=== PATIENT | female | born 1980 ===

== ENCOUNTER 2023-12-12 15:03 | Inpatient (IN) | payer OTHER ==
[2023-12-12 15:54] VITALS: BMI 12.1
[2023-12-12 16:23] LABS: BASO % 0.2 % (0-2.0); HEMATOCRIT 42.5 % (32.4-45.2); HEMOGLOBIN 14.5 GM/dL (10.7-15.3); LYMPH % 6.3 % (8-40); MCH 31.7 pg (25.7-33.7); MCHC 34.1 g/dl (32.0-36.0); MEAN CELL VOLUME 92.9 fl (80-96); MEAN PLT VOLUME 7.7 fl (7.5-11.1); MONO % 6.4 % (3.8-10.2); NEUT % 87.1 % (42.8-82.8); PLATELET COUNT 274 10^3/uL (134-434); RBC 4.58 M/mm3 (3.60-5.2); RDW 14.1 % (11.6-15.6); WHITE BLOOD COUNT 7.9 K/mm3 (4.0-10.0)
[2023-12-12 16:51] LABS: POTASSIUM 3.2 mmol/L (3.5-5.1)
[2023-12-12 16:53] LABS: BLOOD UREA NITROGEN 8.8 mg/dL (7-18)
[2023-12-12 16:54] LABS: ALBUMIN 3.5 g/dl (3.4-5.0)
[2023-12-12 16:57] LABS: CREATININE 0.4 mg/dL (0.55-1.3)
[2023-12-12 16:58] LABS: BILIRUBIN,TOTAL 0.2 mg/dL (0.2-1); TOT PROT 7.5 g/dl (6.4-8.2)
[2023-12-12] MEDS: SODIUM CHLORIDE 1,000 ML IV STA (18:23)
[2023-12-12 19:25] LABS: CHLORIDE 112 mmol/L (98-107); SODIUM 145 mmol/L (136-145)
[2023-12-12 19:27] LABS: BLOOD UREA NITROGEN 8.7 mg/dL (7-18); CALCIUM 7.9 mg/dL (8.5-10.1); CO2 29 mmol/L (21-32); GLUCOSE,RANDOM 109 mg/dL (74-106)
[2023-12-12 19:31] LABS: CREATININE 0.4 mg/dL (0.55-1.3)
[2023-12-12 19:44] LABS: ANION GAP 5 mmol/L (4-13); POTASSIUM 2.8 mmol/L (3.5-5.1)
[2023-12-12] MEDS ORDERED: KCL 10 MEQ IVPB 10 MEQ/100 ML INFUS.BAG IVPB ONE (20:37)
[2023-12-12] MEDS: KCL 10 MEQ IVPB 10 MEQ/100 ML INFUS.BAG IVPB SCH (20:55)
[2023-12-12] MEDS ORDERED: ACETAMINOPHEN 1000 MG/100 ML BAG IVPB PRN ×2 (21:44→22:14)
[2023-12-12] MEDS: SODIUM CHLORIDE 0.9% 500 ML INFUS.BAG IV ONE (22:26)
[2023-12-12] MEDS: DEXTROSE 5%-NORMAL SALINE 1,000 ML IV SCH (22:35)
[2023-12-12] MEDS ORDERED: PHENobarbital SODIUM 65 MG/1 ML VIAL ONE (23:47)
[2023-12-13] MEDS: PHENobarbital SODIUM 65 MG/1 ML VIAL IVPB ONE (00:06)
[2023-12-13 01:54] LABS: EPI CELLS >36 /uL (0-25.1); HYALINE CASTS 2 /uL (0-3.1); PH,URINE 6.5 (5.0-8.0); URINE APPEARANCE CLOUDY; URINE BACTERIA >9,000 /uL (0-1359); URINE BILIRUBIN NEGATIVE (NEGATIVE); URINE COLOR YELLOW; URINE GLUCOSE (UA) NEGATIVE (NEGATIVE); URINE KETONE 1+ (NEGATIVE); URINE LEUK ESTERASE NEGATIVE (NEGATIVE); URINE NITRITE POSITIVE (NEGATIVE); URINE PROTEIN TRACE (NEGATIVE); URINE UROBILINOGEN 0.2 mg/dL (0.2-1.0)
[2023-12-13] MEDS ORDERED: ACETAMINOPHEN 1000 MG/100 ML BAG IVPB PRN ×2 (03:03→03:04)
[2023-12-13] MEDS: SODIUM CHLORIDE 1,000 ML with POTASSIUM CHLORIDE 40 MEQ IV SCH (04:16)
[2023-12-13 05:08] LABS: URINE RBC 264.9 /uL (0-23.9); YEAST PRESENT (NEGATIVE)
[2023-12-13 08:36] LABS: BASO % 0.5 % (0-2.0); EOS % 0.5 % (0-4.5); HEMATOCRIT 35.4 % (32.4-45.2); HEMOGLOBIN 11.8 GM/dL (10.7-15.3); LYMPH % 8.3 % (8-40); MCH 31.4 pg (25.7-33.7); MCHC 33.3 g/dl (32.0-36.0); MEAN CELL VOLUME 94.4 fl (80-96); MONO % 8.3 % (3.8-10.2); NEUT % 82.4 % (42.8-82.8); PLATELET COUNT 214 10^3/uL (134-434); RBC 3.75 M/mm3 (3.60-5.2); RDW 14.1 % (11.6-15.6); WHITE BLOOD COUNT 8.1 K/mm3 (4.0-10.0)
[2023-12-13 08:42] LABS: INR 1.15 (0.83-1.09); PROTHROMBIN TIME (PATIENT) 13.3 SEC (9.7-13.0)
[2023-12-13 08:45] LABS: ACTIVATED PTT 24.4 SECONDS (25.2-36.5)
[2023-12-13 08:48] LABS: POTASSIUM 3.5 mmol/L (3.5-5.1)
[2023-12-13 09:31] LABS: BLOOD UREA NITROGEN 6.8 mg/dL (7-18); CALCIUM 8.2 mg/dL (8.5-10.1); MAGNESIUM 2.3 mg/dL (1.8-2.4)
[2023-12-13 09:34] LABS: CREATININE 0.2 mg/dL (0.55-1.3); PHOSPHOROUS 2.9 mg/dL (2.5-4.9)
[2023-12-13 09:36] LABS: BILIRUBIN,TOTAL 0.4 mg/dL (0.2-1); TOT PROT 5.8 g/dl (6.4-8.2)
[2023-12-13] MEDS: THIAMINE HCL 200 MG/2 ML VIAL IVPB SCH (09:41)
[2023-12-13 09:42] LABS: ALBUMIN 2.8 g/dl (3.4-5.0)
[2023-12-13] MEDS ORDERED: ENOXAPARIN NA (PORCINE) 40 MG/0.4 ML DISP.SYRIN SQ SCH (10:00)
[2023-12-13] MEDS: POTASSIUM CHLORIDE 40 MEQ in SODIUM CHLORIDE 1,000 ML IV SCH (17:50)
[2023-12-13] MEDS: PHENobarbital SODIUM 65 MG/1 ML VIAL IVPB SCH (20:36)
[2023-12-14 07:46] LABS: BASO % 0.6 % (0-2.0); EOS % 1.2 % (0-4.5); HEMATOCRIT 37.6 % (32.4-45.2); HEMOGLOBIN 12.7 GM/dL (10.7-15.3); LYMPH % 16.4 % (8-40); MCHC 33.7 g/dl (32.0-36.0); MEAN PLT VOLUME 8.3 fl (7.5-11.1); MONO % 5.6 % (3.8-10.2); NEUT % 76.2 % (42.8-82.8); PLATELET COUNT 199 10^3/uL (134-434); RBC 3.96 M/mm3 (3.60-5.2); WHITE BLOOD COUNT 6.7 K/mm3 (4.0-10.0)
[2023-12-14 07:54] LABS: CHLORIDE 116 mmol/L (98-107); POTASSIUM 4.9 mmol/L (3.5-5.1); SODIUM 144 mmol/L (136-145)
[2023-12-14 07:58] LABS: BLOOD UREA NITROGEN 12.1 mg/dL (7-18); CALCIUM 8.5 mg/dL (8.5-10.1)
[2023-12-14 07:59] LABS: ANION GAP 7 mmol/L (4-13); CO2 21 mmol/L (21-32)
[2023-12-14 08:02] LABS: CREATININE 0.3 mg/dL (0.55-1.3)
[2023-12-14 08:08] LABS: GLUCOSE,RANDOM 39 mg/dL (74-106)
[2023-12-14] MEDS ORDERED: DEXTROSE 50%-WATER 25 GM/50 ML DISP.SYRIN ONE (08:35)
[2023-12-14] MEDS: DEXTROSE 5%-LACTATED RINGERS 1,000 ML IV SCH (09:09)
[2023-12-14] MEDS: DEXTROSE 50%-WATER - 25 GM/50 ML VIAL IVPUSH ONE (09:20)
[2023-12-14] MEDS: CEFTRIAXONE 1 GM in DEXTROSE 5%-WATER - 50 ML IVPB SCH (17:13)
[2023-12-15 08:39] LABS: HEMATOCRIT 31.5 % (32.4-45.2); MCH 31.7 pg (25.7-33.7); MCHC 31.8 g/dl (32.0-36.0); MEAN CELL VOLUME 99.6 fl (80-96); MEAN PLT VOLUME 8.4 fl (7.5-11.1); PLATELET COUNT 161 10^3/uL (134-434); RBC 3.16 M/mm3 (3.60-5.2); RDW 14.5 % (11.6-15.6); WHITE BLOOD COUNT 4.9 K/mm3 (4.0-10.0)
[2023-12-15 12:25] LABS: CHLORIDE 105 mmol/L (98-107); SODIUM 141 mmol/L (136-145)
[2023-12-15 12:27] LABS: CALCIUM 8.1 mg/dL (8.5-10.1); CO2 30 mmol/L (21-32); GLUCOSE,RANDOM 109 mg/dL (74-106); MAGNESIUM 1.8 mg/dL (1.8-2.4)
[2023-12-15 12:30] LABS: CREATININE 0.3 mg/dL (0.55-1.3); PHOSPHOROUS 2.6 mg/dL (2.5-4.9)
[2023-12-15 12:32] LABS: ANION GAP 6 mmol/L (4-13); BLOOD UREA NITROGEN 2.3 mg/dL (7-18); POTASSIUM 2.8 mmol/L (3.5-5.1)
[2023-12-15] MEDS: KCL 10 MEQ IVPB 10 MEQ/100 ML INFUS.BAG IVPB SCH ×2 (13:57→15:59)
[2023-12-15] MEDS: POTASSIUM CHLORIDE ORAL LIQUID 20 MEQ/15 ML NGT ONE (15:59)
[2023-12-15] MEDS: AMINO ACIDS 4.25%/D5W 1,000 ML IV SCH (18:10)
[2023-12-15 20:45] LABS: POTASSIUM 3.4 mmol/L (3.5-5.1)
[2023-12-15 20:47] LABS: CALCIUM 8.1 mg/dL (8.5-10.1)
[2023-12-15 20:48] LABS: BLOOD UREA NITROGEN 3.4 mg/dL (7-18)
[2023-12-15 20:51] LABS: CREATININE 0.3 mg/dL (0.55-1.3)
[2023-12-16] MEDS: POTASSIUM CHLORIDE ORAL LIQUID 20 MEQ/15 ML NGT ONE (01:47)
[2023-12-16 07:59] LABS: HEMATOCRIT 38.2 % (32.4-45.2); MCH 31.5 pg (25.7-33.7); MCHC 34.1 g/dl (32.0-36.0); MEAN CELL VOLUME 92.6 fl (80-96); MEAN PLT VOLUME 8.3 fl (7.5-11.1); PLATELET COUNT 248 10^3/uL (134-434); RBC 4.13 M/mm3 (3.60-5.2); RDW 13.3 % (11.6-15.6); WHITE BLOOD COUNT 6.7 K/mm3 (4.0-10.0)
[2023-12-16 08:18] LABS: CHLORIDE 100 mmol/L (98-107); SODIUM 139 mmol/L (136-145)
[2023-12-16 08:28] LABS: CALCIUM 8.1 mg/dL (8.5-10.1)
[2023-12-16 08:29] LABS: BLOOD UREA NITROGEN 8.6 mg/dL (7-18); CO2 30 mmol/L (21-32); GLUCOSE,RANDOM 123 mg/dL (74-106); MAGNESIUM 1.8 mg/dL (1.8-2.4)
[2023-12-16 08:32] LABS: CREATININE 0.2 mg/dL (0.55-1.3)
[2023-12-16 08:45] LABS: ANION GAP 9 mmol/L (4-13); POTASSIUM 2.1 mmol/L (3.5-5.1)
[2023-12-16] MEDS: KCL 10 MEQ IVPB 10 MEQ/100 ML INFUS.BAG IVPB SCH ×2 (10:00→13:34)
[2023-12-16] MEDS: METOCLOPRAMIDE HCL INJECTION 10 MG/2 ML VIAL IVPUSH ONE (13:33)
[2023-12-16] MEDS: POTASSIUM PHOSPHATE 30 MM in SODIUM CHLORIDE 500 ML IVPB ONE (17:28)
[2023-12-17 00:59] LABS: POTASSIUM 3.1 mmol/L (3.5-5.1)
[2023-12-17 01:03] LABS: BLOOD UREA NITROGEN 10.5 mg/dL (7-18)
[2023-12-17 01:05] LABS: CREATININE 0.2 mg/dL (0.55-1.3)
[2023-12-17 01:07] LABS: BILIRUBIN,TOTAL 0.3 mg/dL (0.2-1); TOT PROT 6.5 g/dl (6.4-8.2)
[2023-12-17 01:14] LABS: CALCIUM 7.7 mg/dL (8.5-10.1)
[2023-12-17 02:22] LABS: MAGNESIUM 1.7 mg/dL (1.8-2.4)
[2023-12-17 02:25] LABS: PHOSPHOROUS 4.7 mg/dL (2.5-4.9)
[2023-12-17] MEDS: KCL 10 MEQ IVPB 10 MEQ/100 ML INFUS.BAG IVPB SCH (02:33)
[2023-12-17 06:33] LABS: BASO % 0.6 % (0-2.0); EOS % 0.1 % (0-4.5); HEMATOCRIT 39.2 % (32.4-45.2); HEMOGLOBIN 13.2 GM/dL (10.7-15.3); LYMPH % 6.4 % (8-40); MCH 31.3 pg (25.7-33.7); MCHC 33.8 g/dl (32.0-36.0); MEAN CELL VOLUME 92.6 fl (80-96); MEAN PLT VOLUME 7.9 fl (7.5-11.1); MONO % 6.4 % (3.8-10.2); NEUT % 86.5 % (42.8-82.8); PLATELET COUNT 269 10^3/uL (134-434); RBC 4.23 M/mm3 (3.60-5.2); WHITE BLOOD COUNT 9.2 K/mm3 (4.0-10.0)
[2023-12-17 12:14] LABS: CHLORIDE 102 mmol/L (98-107); SODIUM 140 mmol/L (136-145)
[2023-12-17 12:17] LABS: BLOOD UREA NITROGEN 10.7 mg/dL (7-18); CALCIUM 8.4 mg/dL (8.5-10.1); CO2 29 mmol/L (21-32); GLUCOSE,RANDOM 156 mg/dL (74-106); MAGNESIUM 1.9 mg/dL (1.8-2.4)
[2023-12-17] MEDS ORDERED: IOHEXOL (OMNIPAQUE PO) 12 MG/ML - 500 ML BOTTLE PO ONE (12:18)
[2023-12-17 12:21] LABS: ANION GAP 9 mmol/L (4-13); CREATININE 0.2 mg/dL (0.55-1.3); PHOSPHOROUS 2.1 mg/dL (2.5-4.9); POTASSIUM 2.9 mmol/L (3.5-5.1)
[2023-12-17 13:57] LABS: CHOLESTEROL 178 mg/dL (50-200)
[2023-12-17 14:00] LABS: LDL CHOLESTEROL (ONLY SJRH) 76 mg/dL (5-100)
[2023-12-17 14:02] LABS: HDL CHOLESTEROL 73 mg/dL (40-60)
[2023-12-17] MEDS: NAPH,MB-DB/K PH,MBDB POWDER PACKET PO ONE (15:28)
[2023-12-17] MEDS: POTASSIUM CHLORIDE TABS 20 MEQ TABLET.ER (FP) PO ONE (15:28)
[2023-12-17] MEDS: NAPH,MB-DB/K PH,MBDB POWDER PACKET GT ONE (15:36)
[2023-12-17] MEDS: POTASSIUM CHLORIDE ORAL LIQUID 20 MEQ/15 ML GT ONE (15:36)
[2023-12-17] MEDS: POTASSIUM CHLORIDE 20 MEQ in AMINO ACIDS 4.25%/D5W 1,000 ML IV SCH (17:51)
[2023-12-18 07:30] LABS: HEMATOCRIT 41.2 % (32.4-45.2); HEMOGLOBIN 13.9 GM/dL (10.7-15.3); MCH 31.4 pg (25.7-33.7); MCHC 33.7 g/dl (32.0-36.0); MEAN CELL VOLUME 93.2 fl (80-96); MEAN PLT VOLUME 7.7 fl (7.5-11.1); PLATELET COUNT 316 10^3/uL (134-434); RBC 4.42 M/mm3 (3.60-5.2); RDW 13.1 % (11.6-15.6); WHITE BLOOD COUNT 10.1 K/mm3 (4.0-10.0)
[2023-12-18 07:49] LABS: POTASSIUM 3.7 mmol/L (3.5-5.1)
[2023-12-18 07:54] LABS: CALCIUM 8.5 mg/dL (8.5-10.1)
[2023-12-18 07:55] LABS: ALBUMIN 3.2 g/dl (3.4-5.0); BLOOD UREA NITROGEN 11.8 mg/dL (7-18); MAGNESIUM 1.8 mg/dL (1.8-2.4)
[2023-12-18 07:58] LABS: CREATININE 0.3 mg/dL (0.55-1.3); PHOSPHOROUS 1.9 mg/dL (2.5-4.9); TOT PROT 6.7 g/dl (6.4-8.2)
[2023-12-18 07:59] LABS: BILIRUBIN,TOTAL 0.2 mg/dL (0.2-1)
[2023-12-18] MEDS: SODIUM PHOSPHATE - 30 MM in DEXTROSE 5%-WATER - 500 ML IVPB ONE (09:11)
[2023-12-18] MEDS: PEG 3350/NA SULF BICARB CL/KCL 4000 ML SOLN.RECON GT ONE (18:12)
[2023-12-18] MEDS: POTASSIUM PHOSPHATE 30 MM in DEXTROSE 5%-WATER - 500 ML IVPB ONE (21:09)
[2023-12-19 07:39] LABS: BASO % 0.1 % (0-2.0); EOS % 0.1 % (0-4.5); HEMATOCRIT 41.7 % (32.4-45.2); HEMOGLOBIN 14.1 GM/dL (10.7-15.3); LYMPH % 7.5 % (8-40); MCH 31.4 pg (25.7-33.7); MCHC 33.8 g/dl (32.0-36.0); MEAN CELL VOLUME 92.8 fl (80-96); MEAN PLT VOLUME 7.9 fl (7.5-11.1); MONO % 8.8 % (3.8-10.2); NEUT % 83.5 % (42.8-82.8); PLATELET COUNT 306 10^3/uL (134-434); RBC 4.49 M/mm3 (3.60-5.2); RDW 13.2 % (11.6-15.6); WHITE BLOOD COUNT 9.9 K/mm3 (4.0-10.0)
[2023-12-19 07:51] LABS: INR 1.29 (0.83-1.09); PROTHROMBIN TIME (PATIENT) 14.9 SEC (9.7-13.0)
[2023-12-19 07:57] LABS: POTASSIUM 3.4 mmol/L (3.5-5.1)
[2023-12-19 08:19] LABS: CALCIUM 8.4 mg/dL (8.5-10.1)
[2023-12-19 08:20] LABS: BLOOD UREA NITROGEN 12.9 mg/dL (7-18)
[2023-12-19 08:23] LABS: CREATININE 0.2 mg/dL (0.55-1.3)
[2023-12-19] MEDS: POTASSIUM PHOSPHATE 30 MM in SODIUM CHLORIDE 500 ML IVPB ONE (22:48)
[2023-12-20 08:22] LABS: HEMATOCRIT 38.2 % (32.4-45.2); MCHC 34.2 g/dl (32.0-36.0); MEAN CELL VOLUME 93.6 fl (80-96); PLATELET COUNT 316 10^3/uL (134-434); RBC 4.08 M/mm3 (3.60-5.2); RDW 13.3 % (11.6-15.6)
[2023-12-20 08:44] LABS: POTASSIUM 4.1 mmol/L (3.5-5.1)
[2023-12-20 08:54] LABS: BLOOD UREA NITROGEN 12.5 mg/dL (7-18); CREATININE 0.2 mg/dL (0.55-1.3)
[2023-12-20 08:55] LABS: BILIRUBIN,TOTAL 0.3 mg/dL (0.2-1); TOT PROT 6.3 g/dl (6.4-8.2)
[2023-12-20 08:57] LABS: ALBUMIN 2.8 g/dl (3.4-5.0)
[2023-12-20 08:59] LABS: CALCIUM 8.9 mg/dL (8.5-10.1)
[2023-12-20] MEDS: ACETAMINOPHEN 1000 MG/100 ML BAG IVPB SCH (19:45)
[2023-12-21 07:35] LABS: HEMATOCRIT 38.9 % (32.4-45.2); HEMOGLOBIN 13.1 GM/dL (10.7-15.3); MCH 31.3 pg (25.7-33.7); MCHC 33.7 g/dl (32.0-36.0); MEAN PLT VOLUME 7.5 fl (7.5-11.1); PLATELET COUNT 340 10^3/uL (134-434); RBC 4.19 M/mm3 (3.60-5.2); RDW 13.2 % (11.6-15.6); WHITE BLOOD COUNT 9.2 K/mm3 (4.0-10.0)
[2023-12-21 07:45] LABS: POTASSIUM 3.7 mmol/L (3.5-5.1)
[2023-12-21 07:50] LABS: CALCIUM 8.5 mg/dL (8.5-10.1)
[2023-12-21 07:51] LABS: ALBUMIN 2.9 g/dl (3.4-5.0); BLOOD UREA NITROGEN 15.8 mg/dL (7-18)
[2023-12-21 07:54] LABS: CREATININE 0.2 mg/dL (0.55-1.3); PHOSPHOROUS 1.9 mg/dL (2.5-4.9)
[2023-12-21 07:55] LABS: BILIRUBIN,TOTAL 0.4 mg/dL (0.2-1)
[2023-12-21 07:56] LABS: TOT PROT 6.3 g/dl (6.4-8.2)
[2023-12-21] MEDS ORDERED: MORPHINE SULFATE/0.9% NACL/PF 100 MG/100 ML BAG IVPB SCH (09:45)
[2023-12-21] MEDS: POTASSIUM PHOSPHATE 30 MM in SODIUM CHLORIDE 500 ML IVPB ONE (16:48)
[2023-12-21] MEDS: SODIUM PHOSPHATE - 15 MM in SODIUM CHLORIDE 250 ML IVPB ONE (18:41)
[2023-12-24 07:00] LABS: HEMATOCRIT 39.6 % (32.4-45.2); HEMOGLOBIN 13.4 GM/dL (10.7-15.3); MCHC 33.7 g/dl (32.0-36.0); MEAN CELL VOLUME 91.8 fl (80-96); MEAN PLT VOLUME 7.6 fl (7.5-11.1); PLATELET COUNT 485 10^3/uL (134-434); RBC 4.31 M/mm3 (3.60-5.2); WHITE BLOOD COUNT 14.2 K/mm3 (4.0-10.0)
[2023-12-24 07:12] LABS: POTASSIUM 5.2 mmol/L (3.5-5.1)
[2023-12-24 07:14] LABS: CALCIUM 9.4 mg/dL (8.5-10.1)
[2023-12-24 07:15] LABS: ALBUMIN 3.3 g/dl (3.4-5.0); BLOOD UREA NITROGEN 33.3 mg/dL (7-18)
[2023-12-24 07:18] LABS: CREATININE 0.4 mg/dL (0.55-1.3); PHOSPHOROUS 4.2 mg/dL (2.5-4.9)
[2023-12-24 07:19] LABS: BILIRUBIN,TOTAL 0.3 mg/dL (0.2-1); TOT PROT 7.1 g/dl (6.4-8.2)
[2023-12-24 08:20] LABS: ANISOCYTOSIS 0; MACROCYTOSIS 0
[2023-12-24 12:45] LABS: CALCIUM 9.3 mg/dL (8.5-10.1)
[2023-12-24 12:48] LABS: CREATININE 0.4 mg/dL (0.55-1.3)
[2023-12-24] MEDS: hydrALAZINE HCL 20 MG/ML VIAL IVPUSH ONE (13:33)
[2023-12-24] MEDS ORDERED: morphine CARPU-JECT 2 MG/1 ML DISP.SYRIN IM PRN (14:27)
[2023-12-24] MEDS: morphine CARPU-JECT 2 MG/1 ML DISP.SYRIN IM SCH (16:19)
[2023-12-24] MEDS: LIDOCAINE VISCOUS 2% ORAL/TOP 15 ML UNIT-DOSE CUP MM ONE (16:23)
[2023-12-25] MEDS: hydrALAZINE HCL 20 MG/ML VIAL IVPUSH ONE (09:10)
[2023-12-25] MEDS: AMINO ACIDS 4.25%/D5W 1,000 ML IV SCH (15:53)
[2023-12-27] MEDS ORDERED: morphine SULFATE 10 MG/5 ML UNIT-DOSE CUP PO PRN (13:52)
[2023-12-27] MEDS ORDERED: ACETAMINOPHEN 650 MG/20.3 ML ORAL SOLUTION (CUPS) PO PRN (13:58)
[2023-12-27 20:34] VITALS: BP 142/97; PULSE 140; RESP 19; TEMP 99.4
== END 2023-12-28 03:30 | disposition expired | DRG 388 ==
LOC: JER 15:03 → JERBED 21:05 → J4S 12-13 01:33
PROVIDERS: ADMIT Internal Medicine; ATTEND Internal Medicine
PROC: 0DJD8ZZ Inspection of Lower Intestinal Tract, Via Natural or Artificial Opening Endoscopic (ICD-10-PCS; principal; 2023-12-19 11:00)
DX: K56.2 Volvulus (principal); E43 Unspecified severe protein-calorie malnutrition; N39.0 Urinary tract infection, site not specified; Z68.1 Body mass index [BMI] 19.9 or less, adult; F73 Profound intellectual disabilities; R64 Cachexia; E87.0 Hyperosmolality and hypernatremia; K56.699 Other intestinal obstruction unspecified as to partial versus complete obstruction; G40.909 Epilepsy, unspecified, not intractable, without status epilepticus; E87.6 Hypokalemia; B96.20 Unspecified Escherichia coli [E. coli] as the cause of diseases classified elsewhere; Z93.3 Colostomy status; E83.39 Other disorders of phosphorus metabolism; G80.9 Cerebral palsy, unspecified; K59.81 Ogilvie syndrome
CPT/HCPCS: 0241U-QW; 36415; 71045-TC-FY; 74018-TC-FY; 74177-TC; 80048; 80053; 80061; 80184; 81003; 82436; 82962; 83605; 83690; 83735; 84100; 84133; 84300; 84703; 85025; 85027; 85610; 85730; 86850; 86900; 86901; 87040; 87086; 87186; 93005; 93010; 99285-25; J0131; Q9967